=== PATIENT | male | born 1960 | race Native Hawaiian/Other Pacific Islander ===

== ENCOUNTER 2023-05-10 04:16 | Emergency (ER) | payer OTHER ==
[~2023-05-10] VITALS: Ht 188 cm; Wt 115.7 kg
[2023-05-10 04:20] VITALS: TEMP 98
[2023-05-10 05:30] VITALS: BP 121/63
== END 2023-05-10 05:38 | disposition home or self-care (01) ==
LOC: ED 04:16
DX: L50.9 Urticaria, unspecified (principal); T78.40XA Allergy, unspecified, initial encounter
CPT/HCPCS: 96374; 96375; 99284; J0171; J1200; J2405; J2930; J3490